=== PATIENT | female | born 1980 ===

== ENCOUNTER 2019-07-28 14:07 | Outpatient (CLI) | payer SELFPAY ==
--- NOTE | 2019-07-28 14:15 | US_ITS ---
WS: [id number] OBSTETRICAL ULTRASOUND COMPLETE HISTORY: ANATOMY CHECK. FIRST VISIT. COMPARISON: None available. Anatomic screening survey is limited by late gestational age. Single intrauterine gestation in Cephalic presentation. Cervix is Closed and normal length. Cervical length is 5.2 cm. Normal amount of amniotic fluid surrounds the fetus. Placenta: Posterior and fundal. Placenta grade 1 Heart: 147 BPM. Four chambers are identified. Anatomy: Posterior fossa and the cerebellum is poorly visualized due to late gestational age. Ventric les are normal size. No abnormality is identified. Spine is normal. kidneys, stomach and urinar y bladder are unremarkable. Abdominal wall, three-vessel cord and cord insertion site are normal. 4 extremities are present. profile: Not visualized. measurements: BPD = 8.0 cm = 32w0d HC = 29.1 cm = 32w0d AC = 27.9 cm = 32w0d FL = 6.2 cm = 32w2d EFW: 1899 g., 55th %. Measurements are internally concordant. AGA by ultrasound: 32w1d JULISSA by ultrasound: 09/21/2019 US/US OB >= 14 weeks fetus [id number] IMPRESSION: 1. Single intrauterine gestation of 32w1d with an EDC of 09/21/2019. 2. Limited evaluation of the anatomy due to late gestational age. Posterior fo ssa is partially obscured by the calvarium. profile not visualized.
== END 2019-07-28 14:08 | disposition home or self-care (01) ==
PROVIDERS: PCP Family Medicine; Visit Provider Family Medicine
DX: O09.32 Supervision of pregnancy with insufficient antenatal care, second trimester (principal); Z36.89 Encounter for other specified antenatal screening; Z3A.32 32 weeks gestation of pregnancy
CPT/HCPCS: 76805

== ENCOUNTER 2019-09-06 10:02 | Outpatient (CLI) | payer SELFPAY ==
[2019-09-06] VITALS (7 sets, daily range): BP systolic 105–133; BP diastolic 58–80; PULSE 56–73; RESP 16; TEMP 36.7
[2019-09-06] MEDS: lactated ringers 1,000 ML 999 ML IV (11:41)
[2019-09-06] MEDS: ampicillin 2,000 MG in sodium chloride 0.9% (plus) 50 ML 100 MG IV (11:41)
[2019-09-06] MEDS: betamethasone susp 6 mg/mL 5 mL 12 MG IM (13:29)
--- NOTE | 2019-09-06 15:15 | P.SS_ITS ---
Short Stay Summary Providers Date of Admit/Discharge: 09/06/19 Attending Provider: Eve Perry MD Primary Care Provider: Eve Perry MD Chief Complaint: labor/bleeding HPI History of Present Illness Romelia Dewitt is a 39 year old female 6 para 5-0-0-5 with an EDC of 09/21/2019 as determined by late second trimester/early third trimester ultrasound. She does relay a sure last menstrual period which would give her an EDC of 10/15/2019. Going by ultrasound dating guidelines, she would be 37-6/7 weeks gestation today, but would be 34-3/7 weeks by sure last menstrual period. She presented for care on 07/23/2019 stating that she sought asylum in this country secondary to persecution in her homeland of [place]. She has been compliant with her care, and her course since 07/23/2019 has been complicated by advanced maternal age, a urinary tract infection (E. coli) as well as bacterial vaginosis and most recently group B strep positive status.We put her on sertraline for a very brief period of time, but patient stopped it stating that she was feeling better once she got into [place]. She is accompanied during her appointments by her friend who is bilingual and is a great help with translation, even though we do use the medical translating services well during her appointments. She also has a son who lives and works in [place]. She is not exactly sure who the father the baby is. Patient states that she began gail 2 days ago, but this morning they became more frequent and more intense, and she lost her mucous plug. At that point they decided to come into the hospital. No rupture of membranes, but there was some blood in the mucous plug. Review of Systems Const: Denies: fever(s) : Reports: vaginal bleeding (Small amount of blood in the mucous plug), vaginal discharge (Mucous plug) and pelvic pain (Intermittent and consistent with contractions); Denies: vaginal odor Home Meds/Allergies Home Medications and Allergies Home Medications Medication Instructions Recorded Confirmed Type PNV cmb#95-ferrous fumarate-FA 1 tab PO DAILY 09/06/19 09/06/19 History [] Allergies Allergy/AdvReac Type Severity Reaction Status Date / Time No Known Allergies Allergy Verified 09/06/19 13:09 PFSH Acute PFSH: Social History (Updated 09/06/19 @ 15:29 by Eve Perry MD) Smoking and tobacco status: never smoked Alcohol intake: never Substance/Drug Use: never Adopted: No Caregiver/support person: Yes Lives independently: Yes Number of children: 5 Current occupational status: other Details: She works for a few hours at a time at a [employer] and [employer] Female Reproductive History: control method: none : 6 Para: 5 Spontaneous abortions: No Vitals/I&O/Wt Last Vital Signs Temp 98.0 F 09/06/19 11:12 Pulse 56 L 09/06/19 14:21 Resp 16 09/06/19 11:12 BP 124/79 09/06/19 14:21 09/06/19 09/06/19 09/06/19 06:59 14:59 22:59 Intake Total 50 / 50 Balance 50 / 50 Physical Exam Narrative: EXAM NARRATIVE: heart tones are category 1 with a baseline in the 130s to 140 with moderate variability and some accelerations. There was what appeared to be an early deceleration early in the monitoring. Her contractions were initially every 2 to 12 minutes but have recently been at least 10 to 15 minutes apart and decreased in intensity. Const: COMMON NORMALS: no acute distress, average body habitus, patient oriented x3, no limitations, healthy appearing, alert and well nourished : MANUAL OB EXAM: dilated (Upon arrival this morning she was dilated fingertip to 1 cm and upon recheck was 2 cm dilated), effaced (She was minimally effaced upon arrival but on recheck was 50% effaced) and station (High upon arrival but on recheck was -2 station) high Neuro: COMMON NORMALS: patient oriented x3 SENSORIUM/ORIENTATION: Yes alert Psych: COMMON NORMALS: mental status grossly normal, Normal thought process present, cooperative, normal affect, speech normal and activity/motor behavior normal SPEECH: Yes normal speech THOUGHT PROCESS: Normal thought process present Hospital Course Admission Diagnoses: Advanced maternal age in multigravida Insufficient care/late for care Gestational age by ultrasound differs from that by sure LMP by 24 days (suboptimal dating) Uterine contractions Group B strep positive status/carrier Hospital Course: Patient arrived this morning stating that she had had contractions for the past couple of days but this morning they increased in frequency and intensity. She also lost her mucous plug this morning, and it had some blood in it. She decided to come in for further evaluation. Since ultrasound was done in the late second/early third trimester and was the only ultrasound she has had this , the ultrasound that based EDC was 09/21/2019. However she stated that she has a sure last menstrual period which gave us an EDC of 10/15/2019. Since the dates differ by 24 days, ultrasound guidelines dictate use of the 09/21/2019 EDC. However, given the uncertainty and the thought that she could be as early as 34-3/7 weeks gestation, we elected to give her a 500 mL bolus of LR and to start the group B strep protocol. Upon recheck of her cervix when we had determined she had gone from a fingertip to 1 cm and thick to 2 cm and 50% effaced, we opted to give betamethasone as well. She then continued with intermittent monitoring and was up in the room with ambulation. Her contractions decreased in frequency and intensity during her stay. She had no leakage of fluid and no bleeding, and we had a reactive heart rate tracing intermittently during her stay. Discharge Summary: Patient stated that she is never had a and has no history of labor. She stated that labor with 1 of her children did take a few days to get started, but most of the time once she started she labored quickly. She notes that this is unusual for her and admits that her contraction are not the intensity that they were this morning or even yesterday. She has agreed to stay with her friend, and her friend states that she can get her here within 30 minutes should her contractions return. They are aware that she needs to return tomorrow for her second betamethasone shot, and they will see me in the office for her routine visit on 09/08/2019. Diagnoses at Discharge Discharge Diagnosis (1) Advanced maternal age in multigravida: Status: Acute (2) Insufficient care in third trimester: Status: Acute (3) Uterine contractions or other obstetric complaints: Status: Acute (4) Group B Streptococcus carrier, antepartum: Status: Acute (5) Establish gestational age, ultrasound: Status: Acute Discharge Plan Discharge Patient Disposition: Home, Self-Care Prescriptions: No Action 28 mg iron- 800 mcg Tablet 1 tab PO DAILY RF: 0 Discharge Orders: Discharge Order (Routine); Ordered 09/06/19 Ordered By: Eve Perry Referrals: Eve Perry MD [Primary Care Provider] - (Come to OB 09/07/2019 after 1:30pm for second betamethasone injection. Patient is to keep her appointment with Dr. Perry care on 09/08/2019.) Diet: Usual diet Activity: Resume usual activity Patient Instructions: Early Labor Signs (DC), OB Undelivered Discharge Attestations Medical Necessity Statement*: As patient was making cervical change we kept her beyond the 4-hour observation francisco for OB. Now that she has had no further cervical change she is able to go home having state only as an outpatient. Time Spent in Patient Care*: greater than 30 min Specific Discharge Activities: Specific discharge activities: educating patient, educating and/or supporting family/caregiver, documenting/other paperwork and evaluating patient/reviewing data Status at Discharge: Cognitive status at discharge: cognitively intact , Behavioral status at discharge: cooperative , Functional status at discharge: independent ambulation Overall status at discharge: patient is progressing back to baseline Quality Metrics Clinical Quality Measures: During this hospital stay, did patient experience: None Coding Level of Care Code Acute Manager Art for Chg Fwd Diagnoses Advanced maternal age in multigravida O09.529 Insufficient care in third trimester O09.33 Uterine contractions or other obstetric complaints Group B Streptococcus carrier, antepartum O99.820 Establish gestational age, ultrasound Z36.89
== END 2019-09-06 16:05 | disposition home or self-care (01) ==
LOC: OPOB 10:03 → OBGYN 10:03
PROVIDERS: PCP Family Medicine; Visit Provider Family Medicine
DX: O09.523 Supervision of elderly multigravida, third trimester (principal); O09.33 Supervision of pregnancy with insufficient antenatal care, third trimester; R10.9 Unspecified abdominal pain; O99.820 Streptococcus B carrier state complicating pregnancy; Z36.89 Encounter for other specified antenatal screening; Z3A.37 37 weeks gestation of pregnancy
CPT/HCPCS: 12345; 59025; 96372; 99211; J0290; J0702

== ENCOUNTER 2019-09-07 14:05 | Outpatient (CLI) | payer SELFPAY ==
[2019-09-07 14:15] VITALS: BP 119/64; PULSE 59; RESP 17; TEMP 36.9
[2019-09-07 14:30] VITALS: BP 119/64; PULSE 59; RESP 17; TEMP 36.9
--- NOTE | 2019-09-07 14:30 | PC.NURSE ---
Pt here for second betamethasone injection, follow up form 09/06/19. Pt only speaks Slovak and presented alone. Label Tacker line called on [employer] phone, speaker phone used. Triage questions discussed, pt denied any pain or concerns since being d/c yesterday, gave consent to do betamethasone injection and vitals signs, pt signed consents for treatment all with silver plater on phone. Betamethasone injection given in right hip per pt request. Vitals stable. Pt then d/c home.
[2019-09-07] MEDS: betamethasone susp 6 mg/mL 5 mL 12 MG IM (14:31)
== END 2019-09-07 14:30 | disposition home or self-care (01) ==
PROVIDERS: PCP Family Medicine; Visit Provider Family Medicine
DX: O60.00 Preterm labor without delivery, unspecified trimester (principal); Z3A.00 Weeks of gestation of pregnancy not specified
CPT/HCPCS: 96372; 99211; J0702

== ENCOUNTER 2019-09-09 08:21 | Inpatient (IN) | payer MEDICAID, SELFPAY ==
[2019-09-09] VITALS (26 sets, daily range): BP systolic 0–167; BP diastolic 0–110; PULSE 57–96; RESP 15–18; TEMP 36.7–36.9; BMI 28.2
--- NOTE | 2019-09-09 09:28 | P.HP_ITS ---
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 Since the EDC by ultrasound was off by 24 days, guidelines state to go with the ultrasound date. Therefore, she presents at 38- 2/7 weeks gestation with onset of contractions this morning. She had been in the labor room just 3 to 4 days ago with contractions and cervical change from a fingertip to 2 cm dilated and 50% effaced. However, her contractions resolved and she was sent home. Since there is such a big discrepancy in her dates we elected to give her a course of betamethasone which she completed Saturday September 07, 2019. She had also received a dose of ampicillin per the group B strep protocol on September 05 when she came in for her contractions. She attended her office appointment yesterday and was found to be about 3-1/2 cm dilated and 50% effaced but was not gail. She has had no leakage of fluid and no bleeding. Her course has been complicated by late presentation for [facility] care having done so on 07/26/2019. She is new to this area from [place] stating that she is in [place] secondary to persecution in her country. Her has also been complicated by advanced maternal age and group B strep positive status. 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 Date GA/Weeks Outcome Route Wt Inf Gender Labor Lgth Comp. Anesth esia Location 06/02/97 40 live - full term Vaginal 7 lb 8 oz Male [place] 06/06/98 40 live - full term Vaginal 8 lb Male [place] 01/25/02 40 live - full term Vaginal 7 lb Male [place] 02/07/08 40 live - full term Vaginal 6 lb 8 oz Female [place] 11/07/14 40 live - full term Vaginal 7 lb Male [place] Delivery Date: 06/02/97 No anesthesia, no complications [facility] Delivery Date: 06/06/98 No anesthesia, no complications Vicky,E[facility] Delivery Date: 01/25/02 No anesthesia, no complications Vicky,E[facility] Delivery Date: 02/07/08 No anesthesia, no complications Vicky,Eve Delivery Date: 11/07/14 No anesthesia, no complications Vicky,Eve Care JULISSA Calculator Estimated Delivery Date Method Current WG Current Estimate 09/21/19 Ultrasound #1 38w 2d Other Estimates 10/15/19 LMP (Certain) 34w 6d Expected Delivery Route/Plan Vaginal/GBS prophylaxis Vitals/I&O/Wt Last Vital Signs Pulse 69 09/09/19 09:15 BP 147/88 09/09/19 09:15 Physical Exam Narrative: EXAM NARRATIVE: For complete history and physical exam please refer to her record. heart tones have a baseline in the 130s to 140 with moderate variability, accelerations and no decelerations. She is gial every 3 to 5 minutes and of moderate to strong intensity. Const: COMMON NORMALS: no acute distress, patient oriented x3, healthy appearing, alert and well nourished EXAM LIMITATIONS: language barrier : MANUAL OB EXAM: dilated 6 cm, effaced fully, station -1 and other (Soft, vertex) Psych: COMMON NORMALS: mental status grossly normal, cooperative, normal affect, speech normal and activity/motor behavior normal Data Other Labs: INITIAL LABS: Blood Type: O+ D (Rh) Type: Positive Antibody Screen: Negative HCT/HB.8/34.5 Pap Test: Normal, high risk HPV negative Rubella: Immune VDRL: Nonreactive Urine Culture/Screen: E. coli, treated HBsAg: Negative HIV Counseling/Testing: Negative Hepatitis C: Negative Chlamydia: Negative GC: Negative Diabetes Screen: 115 Tdap: Given 07/30/2019 32-36 WEEK LABS: Group B Strep (35-37 weeks): Positive A&P Assessment and plan (1) Advanced maternal age in multigravida: Status: Acute Qualifiers: Trimester: third trimester Qualified Code(s): O09.523 - Supervision of elderly multigravida, third trimester (2) Establish gestational age, ultrasound: Discrepancy between sure last menstrual period EDC and that based on a late second trimester early third trimester ultrasound differ by 24 days, therefore we are to go with the ultrasound date of 09/21/2019 making her 38-2/7 weeks gestation Status: Acute (3) Spontaneous onset of labor: Status: Acute (4) Insufficient care in third trimester: Status: Acute (5) Group B Streptococcus carrier, antepartum: Antibiotic prophylaxis per the group B strep protocol with ampicillin Status: Acute Attestations Medical Necessity Statement*: As patient is actively laboring she will need inpatient hospitalization. Coding Level of Care Code Acute Block Tester for Chg Fwd Diagnoses Advanced maternal age in multigravida O09.523 Trimester: third trimester Establish gestational age, ultrasound Z36.89 Spontaneous onset of labor Insufficient care in third trimester O09.33 Group B Streptococcus carrier, antepartum O99.820
[2019-09-09] MEDS: dextrose 5%-lactated ringers 1,000 ML 125 ML IV (09:30)
[2019-09-09] MEDS: ampicillin 2,000 MG in sodium chloride 0.9% (plus) 50 ML 100 MG IV (09:30)
[2019-09-09 10:04] LABS: Basophils % 0.1 %; Hematocrit 38.4 % (37.0-47.0); Lymphocytes # 2.2 10^3/uL (0.8-4.8); Lymphocytes % 15.5 %; Mean Corpuscular HGB Conc 31.3 g/dL (30.0-36.0); Mean Corpuscular Hemoglobin 27.3 pg (28.0-34.0); Mean Corpuscular Volume 87.3 fL (81-99); Mean Platelet Volume 11.4 fL (7.4-10.4); Monocytes # 0.8 10^3/uL (0.2-0.9); Monocytes % 5.7 %; Neutrophils # 11.3 10^3/uL (1.8-7.7); Neutrophils % 78.2 %; Nucleated Red Blood Cells % 0 %; Platelet Count 267 10^3/cmm (130-400); Red Cell Distribution Width 15.1 % (12.1-15.1); White Blood Count 14.4 10^3/uL (4.0-10.0)
[2019-09-09] MEDS: miSOPROStol 200 mcg Tablet 800 MCG PR (11:10)
[2019-09-09] MEDS: oxytocin 30 UNIT/500 ML BAG 600 UNIT IV (11:15)
--- NOTE | 2019-09-09 11:41 | PM.DELIVERY ---
Delivery Note: Date of delivery: September 09, 2019 Pre-Delivery Course: Patient arrived this morning with contractions onset just prior to her arrival and increasing in frequency and intensity. She had no bleeding and no leakage of fluid. We began ampicillin per the GBS protocol as soon as we could get her IV started. Upon her arrival she was 6 cm dilated, 100% effaced and -1 station and was gail every 2 to 4 minutes. She was found to be 8 cm dilated when we noted a small amount of bloody fluid which was mostly bloody show and clear fluid. Within less than an hour of noting this fluid she was completely dilated. This was at approximately 11 AM. Delivery: With basically 1 push patient delivered a viable female at 11:01 AM. Head was OA. There was no nuchal cord. Bulb suctioning was done upon delivery of baby's head and of baby's body. Baby was placed on maternal abdomen while cord was clamped and cut by myself and cord blood obtained. Baby had a strong and vigorous cry and required only routine resuscitative measures. Gentle traction was placed on the cord, and the placenta was delivered intact at 11:07 AM. Fundus was checked and was firm. Pitocin was begun in routine intravenous dose at that time as it was as quick as we could get it in. Perineum and cervix were inspected and found to be intact. There was a small amount of brisk bleeding noted, and fundal massage revealed a slightly boggy uterus which firmed with passage of a few medium size clots. This happened 1 more time, and she was given misoprostol 800 mcg rectally. Fundus then remained firm. Estimated blood loss 150 mL. Post-Delivery Status: Mother and baby were stable. Baby had Apgars of 9 at 1 minute 9 at 5 minutes and weighed 5 pounds 12 ounces and was 19-1/2 inches in length and appeared to be at least 38 weeks gestation. A&P Assessment and plan (1) Advanced maternal age in multigravida: Status: Resolved Qualifiers: Trimester: third trimester Qualified Code(s): O09.523 - Supervision of elderly multigravida, third trimester (2) Establish gestational age, ultrasound: Status: Resolved (3) Spontaneous onset of labor: Status: Resolved (4) Insufficient care in third trimester: Status: Resolved (5) Group B Streptococcus carrier, antepartum: Status: Resolved (6) Spontaneous vaginal delivery: Routine orders. Patient was able to get her friend who accompanied her at all of her visits on the telephone so that we could give her instructions for nursing measures and could determine baby's name. Status: Acute (7) Precipitous delivery, delivered (current hospitalization): Status: Acute (8) Intact perineum: Status: Acute Coding Level of Care Code Acute Doctor Of Chiropractic for Chg Fwd Diagnoses Advanced maternal age in multigravida O09.523 Trimester: third trimester Establish gestational age, ultrasound Z36.89 Spontaneous onset of labor Insufficient care in third trimester O09.33 Group B Streptococcus carrier, antepartum O99.820 Spontaneous vaginal delivery O80 Precipitous delivery, delivered (current hospitalization) O62.3 Intact perineum
[2019-09-09] MEDS: benzocaine-menthol 78 gm Canister 1 SPRAY TOPICAL (12:24)
[2019-09-09] MEDS: lanolin oint 7 gm 1 APPLIC TOPICAL (12:25)
--- NOTE | 2019-09-09 13:35 | PC.NURSE ---
PT UP TO BATHROOM, INSTRUCTED ON CARE AND THEN MOVED TO 206. THIS LINER ASSEMBLER USED [employer]KL[employer] TRUCK MECHANIC TO TALK WITH PATIENT PRIOR TO MOVING HER UP.
[2019-09-09 23:52] LABS: Hematocrit 33.6 % (37.0-47.0); Hemoglobin 10.7 g/dL (11.5-15.3); Mean Corpuscular HGB Conc 31.8 g/dL (30.0-36.0); Mean Corpuscular Hemoglobin 27.4 pg (28.0-34.0); Mean Corpuscular Volume 86.2 fL (81-99); Mean Platelet Volume 11.4 fL (7.4-10.4); Platelet Count 210 10^3/cmm (130-400); Red Cell Distribution Width 15.1 % (12.1-15.1); White Blood Count 12.8 10^3/uL (4.0-10.0)
[2019-09-10 01:00] VITALS: BP 123/69; PULSE 57; RESP 16; O2SAT 99
[2019-09-10 05:46] VITALS: BP 120/58; PULSE 62; RESP 16; TEMP 36.7
--- NOTE | 2019-09-10 07:55 | P.DS_ITS ---
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 Date of Admission: 09/09/19 08:21 Date of Discharge: 09/10/19 Attending Provider at Admission: Eve Perry MD Attending Provider at Discharge: Eve Perry MD Primary Care Provider: Eve Perry MD Diagnoses at Discharge Discharge Diagnosis (1) Advanced maternal age in multigravida: Status: Resolved Qualifiers: Trimester: third trimester Qualified Code(s): O09.523 - Supervision of elderly multigravida, third trimester (2) Establish gestational age, ultrasound: Status: Resolved (3) Spontaneous onset of labor: Status: Resolved (4) Insufficient care in third trimester: Status: Resolved (5) Group B Streptococcus carrier, antepartum: Status: Resolved (6) Spontaneous vaginal delivery: Status: Acute (7) Precipitous delivery, delivered (current hospitalization): Status: Acute (8) Intact perineum: Status: Acute Reason for Visit Reason for Visit: Reason For Visit: Abdominal pain Hospital Course Hospital Course: Patient arrived yesterday morning gail every 2 to 5 minutes with increasing frequency and intensity. Upon arrival to the OB department she was 6 cm dilated 100% effaced and -1 station. We began antibiotics per the group B strep strep protocol as quickly as we can get an IV established. However, she was completely dilated within an hour and a half of receiving those antibiotics and within 2 hours of arrival to the OB department. After 1 push she delivered a viable female infant weighing 5 pounds 12 ounces with Apgars of 9 at 1 minute and 9 at 5 minutes. She had an intact perineum and minimal to moderate blood loss. day 1 she is having some cramping especially with breast-feeding, and her bleeding is about like a heavy. She states that Motrin is helpful when she receives it. Discharge Summary: She understands that she is ready for discharge but because of the group B strep positive status and precipitous delivery, baby will be watched for another 24 hours. Information Peripartum Data: Delivery Method: Vaginal Laceration description: None Episiotomy description: None complications: none Physical Exam Const: COMMON NORMALS: no acute distress, average body habitus, patient oriented x3, no limitations, healthy appearing, alert and well nourished Neck/C-Spine: COMMON NORMALS: no JVD Resp: COMMON NORMALS: normal respiratory effort, No retractions, No use of accessory muscles and clear to auscultation bilaterally AUSCULTATION: clear to auscultation bilaterally Cardio: COMMON NORMALS: no JVD, regular rate, regular rhythm, S1 normal heart sound present, S2 normal heart sound present, No gallops present (Cardio), No clicks present (Cardio), No murmurs present (Cardio), No rub (Cardio) and Peripheral pulses 2+ throughout RATE: regular rate RHYTHM: regular rhythm HEART SOUNDS: S1 normal heart sound present and S2 normal heart sound present PERIPHERAL PULSES: Peripheral pulses 2+ throughout : UTERUS PALPATION: Yes Other OB uterine findings (Fundus firm and 2 fingerbreadths below the umbilicus) Extremity: COMMON NORMALS: no pedal edema Neuro: COMMON NORMALS: patient oriented x3 SENSORIUM/ORIENTATION: Yes alert Psych: COMMON NORMALS: mental status grossly normal, Normal thought process present, cooperative, normal affect, speech normal and activity/motor behavior normal SPEECH: Yes normal speech THOUGHT PROCESS: Normal thought process present Discharge Data Data Completed and Pending: Labs from last 24 hours 09/09/19 09/09/19 23:40 09:27 WBC 12.8 H 14.4 H RBC 3.90 L 4.40 Hgb 10.7 L 12.0 Hct 33.6 L 38.4 MCV 86.2 87.3 MCH 27.4 L 27.3 L MCHC 31.8 31.3 RDW 15.1 15.1 Plt Count 210 267 MPV 11.4 H 11.4 H Neut % (Auto) 78.2 Lymph % (Auto) 15.5 [place] % (Auto) 5.7 Eos % (Auto) 0.0 Baso % (Auto) 0.1 Neut # (Auto) 11.3 H Lymph # (Auto) 2.2 [place] # (Auto) 0.8 Eos # (Auto) 0.0 Baso # (Auto) 0.0 Nucleated RBC % (a uto) 0 Nucleated RBCs # 0.0 Vitals: Last Vital Signs Temp 98.0 F 09/10/19 05:46 Pulse 62 09/10/19 05:46 Resp 16 09/10/19 05:46 BP 120/58 09/10/19 05:46 Pulse Ox 99 09/10/19 01:00 Discharge Plan Discharge Patient Disposition: Home, Self-Care Condition: Stable Prescriptions: New ibuprofen 800 mg Tablet 800 mg PO TID 10 Days Qty: 30 RF: 0 Continued PNV [id number]-ferrous fumarate-FA [] 28 mg iron- 800 mcg Tablet 1 tab PO DAILY RF: 0 Discharge Orders: Discharge Order (Routine); Ordered 09/10/19 Ordered By: Eve Perry Referrals: Eve Perry MD [Primary Care Provider] - 6 Weeks (Please schedule visit with Dr. 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 Time Spent in Discharge Care*: less than 30 min Specific Discharge Activities: Specific discharge activities: educating patient, educating and/or supporting family/caregiver, documenting/other paperwork and evaluating patient/reviewing data Status at Discharge: Cognitive status at discharge: cognitively intact , Behavioral status at discharge: cooperative , Functional status at discharge: independent ambulation Overall status at discharge: patient is progressing back to baseline Coding Level of Care Code Acute [place] for Chg Fwd Diagnoses Advanced maternal age in multigravida O09.523 Trimester: third trimester Establish gestational age, ultrasound Z36.89 Spontaneous onset of labor Insufficient care in third trimester O09.33 Group B Streptococcus carrier, antepartum O99.820 Spontaneous vaginal delivery O80 Precipitous delivery, delivered (current hospitalization) O62.3 Intact perineum
[2019-09-10] MEDS: prenatal vitamin Capsule 1 CAP PO (10:24)
[2019-09-10 10:30] VITALS: BP 118/77; PULSE 80; RESP 16; TEMP 36.7
--- NOTE | 2019-09-10 14:41 | PC.NURSE ---
Rooming with baby. Discharged completed with pilot control operator helper per phone. Pt verbalized understanding and denies questions or concerns.
== END 2019-09-10 14:30 | disposition home or self-care (01) | DRG 807 ==
LOC: OPOB 08:43 → OBGYN 08:50 → OPOB 09:05 → OBGYN 09:05
PROVIDERS: Admitting Provider Family Medicine; PCP Family Medicine; Visit Provider Family Medicine
DX: O62.3 Precipitate labor (principal); Z37.0 Single live birth; O99.824 Streptococcus B carrier state complicating childbirth; Z3A.38 38 weeks gestation of pregnancy
CPT/HCPCS: 12345; 36415; 59025; 59409; 85025; 85027; 99211; J0290